=== PATIENT | male | born 1955 | race Caucasian/White ===

== ENCOUNTER → 2021-04-11 10:32 | Outpatient (CLI) | payer MEDICARE, SELFPAY ==
[2021-04-11 10:37] LABS: MANUAL DIFFERENTIAL MANUAL DIFFERENTIAL (MANUAL DIFF)
[2021-04-11 11:57] LABS: Basophils # 0.1 K/mm3 (0-0.2); Basophils % 1.4 % (0.1-2.0); Eosinophils # 0.3 K/mm3 (0.0-0.4); Eosinophils % 5.6 % (0.1-12.0); Hematocrit 49.4 % (42.0-52.0); Lymphocytes # 1.8 K/mm3 (0.7-4.5); Mean Corpuscular HGB Conc 32.3 g/dL (31.8-35.4); Mean Corpuscular Hemoglobin 27.4 pg (27.0-31.2); Mean Corpuscular Volume 84.8 fl (80-94); Mean Platelet Volume 7.7 fl (7.4-10.4); Monocytes # 0.4 K/mm3 (0.1-1.0); Monocytes % 6.4 % (1.7-9.3); Neutrophils # 3.2 K/mm3 (1.8-7.8); Neutrophils % 55.7 % (37.0-80.0); Platelet Count 360 K/mm3 (142-424); Red Blood Count 5.83 M/mm3 (4.60-6.20); Red Cell Distribution Width 13.4 % (11.5-17.5); White Blood Count 5.7 K/mm3 (4.8-10.8)
[2021-04-11 12:45] LABS: Anion Gap 11.2 mEq/L (5-15); Blood Urea Nitrogen 19 mg/dl (9-20); Carbon Dioxide 30 mmol/L (22.0-30.0); Chloride 103 mmol/L (98-107); Estimated Glomerular Filt Rate 75 ml/min (>60); GFR (African American) 91 ML/MIN (>60); Glucose 90 mg/dl (74-100); Potassium 5.2 mmoL/L (3.5-5.1); Sodium 139 mmol/L (136-145)
[2021-04-11 14:42] LABS: Eosinophils % 9 % (0-3); Lymphocytes % 23 % (10-50); Monocytes % 5 % (2-9); Neutrophils % 57 % (42-76); Platelet Estimate Normal; RBC Morphology Normal; Total Cells Counted 100
== END ==
PROVIDERS: Visit Provider Urology
DX: N43.40 Spermatocele of epididymis, unspecified (principal); Z01.812 Encounter for preprocedural laboratory examination; Z20.822 Contact with and (suspected) exposure to COVID-19; N50.89 Other specified disorders of the male genital organs
CPT/HCPCS: 36415; 80048; 85007; 85014; 85018; 85048; 85049; U0003

== ENCOUNTER 2021-04-14 07:29 | Day surgery (SDC) | payer MEDICARE, SELFPAY ==
[2021-04-09 13:00] VITALS: BMI 24.1
[2021-04-14] VITALS (10 sets, daily range): BP systolic 126–148; BP diastolic 67–93; PULSE 62–88; RESP 14–18; TEMP 36.1–36.4; O2SAT 94–98
--- NOTE | 2021-04-14 12:39 | HMH.OPNOTE ---
Date of procedure: 04/14/21 Pre-op Diagnosis:: Left spermatocele Post-op Diagnosis:: Left spermatocele, small left hydrocele Procedure performed:: Left spermatocelectomy, left hydrocelectomy Surgeon:: Tyrone Gomez MD LONG DISTANCE BILLING OPERATOR:: Other (Maxx Sanchez) Anesthesia: LMA Estimated blood loss (mL): 5 Clinical Note:: 65-year-old white male with a left-sided spermatocele presents for operative repair. Operative findings:: Patient with a 3 cm left-sided spermatocele that was dissected free from its surrounding attachments and a small left hydrocele. Operative note:: Patient taken to the operating room after informed consent was obtained. Placed on the operating table in the supine position and general anesthesia administered. Preoperative antibiotics and sequential compression devices placed. Was prepped draped in the standard surgical fashion. Left-sided cord block was performed with local anesthetic. Local anesthetic was also placed into the midline raphae. Incision was then made in the midline raphae with a scalpel and carried down through the dartos fascia to a small hydrocele sac. The hydrocele sac was emptied and about 10 cc of fluid was noted. The testicle and spermatocele were then delivered through the incision site. A 3 cm spermatocele was present and intermittently attached to the epididymis and surrounding structures. Was able to meticulously dissect the spermatocele sac from its surrounding structures including the epididymis without getting into the sac itself. Few small blood vessels were noted near the head of the epididymis and they were cauterized. The spermatocele sac was excised and passed off. Hemostasis was achieved of the surrounding structures and the tunical albuginea was reapproximated over the site of the spermatocele sac. This was done with 4-0 interrupted sutures. The hydrocele sac edges were cauterized and scarified to prevent recurrence. The testicle was then placed back into the left hemiscrotum and the dartos fascia closed in a horizontal fashion and the skin closed in a horizontal fashion as well with oral horizontal mattress sutures. Compression dressing applied. Patient tolerated procedure well. Sponge needle instrument count were correct at the end of the case. Condition: stable Disposition: PACU Specimens:: Spermatocele sac Complications:: None
--- NOTE | 2021-04-14 13:38 | HMH.ANESCL ---
[facility] Anesthesia Checklist - Patient Identification Patient Identification: Arm Band - Structural Data Admitted From: Home Planned Operative Procedure/s: Excision Left Spermatocelectomy Consent for Planned Operative Procedure(s) Verified: Yes Verified Documents: Surgical Consent, History and Physical - NPO Status Verified Time NPO: 00:00 - Additional verifications Anesthesia Reactions: No Hx Blood Transfusions: No Blood Transfusion Reaction: No - Airway Assessment C-Spine Mobility Assessed: Yes TMJ Mobility Assessed: Yes Dentition: Good Dentition - Anesthesia Plan Anesthesia Risk discussed: Yes Anesthesia Plan: Verified ASA Class: II Anesthesia Type: General [facility] History Medical History: Denies:: Cancer, Diabetes Mellitus Type 1, Diabetes Mellitus Type 2, Internal Pacemaker, MRSA, Seizures *Have you ever received a pneumonia vaccine?: No *Have you received a flu vaccine this season?: Yes Other Medical History: Reports: Sinus Problems. Denies: Blood Transfusion Reaction Anesthesia experience/problems:: None Laterality Cases: Right: Arthroscopy Knee, Bilateral: Tonsillectomy Other Surgeries: Yes: No Previous Surgery, Colonoscopy. No: Pacemaker Amputation: No Fractures: No - *Social History Last grade of school completed: High school graduate Smoking Status: Never smoker Tobacco Type: cigars Alcohol Intake: current Alcohol Intake Frequency:: holidays/special occasions only Substance Use Type: denies use *Occupational Status:: retired Housing: house Household Members: spouse *Travel in the last 8 weeks: None Family Hx:: Cancer, Coronary Artery Disease, Heart Attack, Hypertension
--- NOTE | 2021-04-14 13:40 | HMH.ANESI ---
[facility] Anesthesia Record Part I Intake, IV Amount: 700 Estimated blood loss (mL): 1 Urine output (mL): 0 Blood Pressure: 143/87 SaO2: 97 Pulse Rate: 87 Respiratory Rate: 14 Temperature: 97.1 F Patient is:: Drowsy
== END 2021-04-14 12:10 | disposition home or self-care (01) ==
LOC: OR 07:30
PROVIDERS: PCP Family Medicine; Visit Provider Urology
PROC: (CPT 54840; principal; 2021-04-14 09:00)
DX: N43.41 Spermatocele of epididymis, single (principal); N43.3 Hydrocele, unspecified; Z80.9 Family history of malignant neoplasm, unspecified; Z82.49 Family history of ischemic heart disease and other diseases of the circulatory system; Z82.3 Family history of stroke; Z79.82 Long term (current) use of aspirin; Z79.899 Other long term (current) drug therapy
CPT/HCPCS: 54840; 88304; 96374; J2405